=== PATIENT | male | born 2005 | race Caucasian/White ===

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

== ENCOUNTER → 2024-09-30 07:08 | Outpatient (CLI) | payer OTHER, SELFPAY ==
[2024-09-30 08:02] LABS: Alanine Aminotransferase 23 IU/L (<50); Albumin 4.7 g/dL (3.5-5.0); Albumin Globulin Ratio 1.7 (1.0-2.8); Alkaline Phosphatase 82 U/L (38-126); Aspartate Aminotransferase 33 IU/L (17-59); Bilirubin Total 0.7 mg/dL (0.2-1.3); Bilirubin Unconjugated 0.4 mg/dL (0.0-1.1); Cholesterol 163 mg/dL (140-199); Globulin 2.8 g/dL (1.7-4.1); HDL Cholesterol 34 mg/dL (40-60); HEMOLYSIS < 15 (0-50); LDL Cholesterol Calculated 110 mg/dL (<100); Total Protein 7.5 g/dL (6.3-8.2); Triglycerides 97 mg/dL (35-150)
[2024-09-30 08:13] LABS: LDL Cholesterol Direct 115 mg/dL (<100)
== END ==
PROVIDERS: PCP Family Medicine; Referring Provider Dermatology; Visit Provider Dermatology
DX: L70.0 Acne vulgaris (principal); K13.0 Diseases of lips; Z79.899 Other long term (current) drug therapy; L90.5 Scar conditions and fibrosis of skin; L81.0 Postinflammatory hyperpigmentation
CPT/HCPCS: 36415; 80061; 80076; 83721